=== PATIENT | female | born 1950 | race Caucasian/White ===

== ENCOUNTER → 2016-08-04 | Outpatient (CLI) | payer MEDICARE ==
[~2016-08-04] MED LIST: AMITRIPTYLINE H25 MG PO; BUPROPION HCL150 M1 PO; CEFUROXIME500 MG PO; COUMADIN 5MG TAB5 MG PO; LOPRESSOR 25 MG25 MG PO; NEURONTIN 300300 MG PO; PRINIVIL20 MG PO; PROAIR HFA8.5 GM INH; PROTONIX 40 MG40 M1 PO; RANITIDINE HCL300 MG PO; SOTALOL AF80 MG PO
== END ==
LOC: KOH-I 12:56
DX: I48.2 Chronic atrial fibrillation (principal); M79.605 Pain in left leg
CPT/HCPCS: 93971

== ENCOUNTER 2020-10-18 17:04 | Inpatient (IN) | payer MEDICARE ==
[~2020-10-18] VITALS: Ht 172.7 cm; Wt 97.6 kg
[~2020-10-18 17:04] MED LIST changes: -AMITRIPTYLINE H25 MG PO; -COUMADIN 5MG TAB5 MG PO; +KEFLEX CAP 500500 MG PO; -LOPRESSOR 25 MG25 MG PO; -NEURONTIN 300300 MG PO; -PROTONIX 40 MG40 M1 PO
[2020-10-18 17:57] LABS: HEMOGLOBIN 14.3 gm/dl (12.3-15.3); RED BLOOD COUNT 4.41 M/UL (4.00-5.10); WHITE BLOOD COUNT 8.2 K/UL (4.5-11.0)
[2020-10-18 18:12] LABS: BUN/CREATININE RATIO 22 (0-10)
[2020-10-19] MEDS ORDERED: WARFARIN SODIUM3 MG PO ×2 (00:23→12:08)
[2020-10-19] MEDS ORDERED: COREG 12.5MG12.5 MG PO (00:24)
[2020-10-19] MEDS ORDERED: AMITRIPTYLINE H25 MG PO (00:24)
[2020-10-19] MEDS ORDERED: PROTONIX 40 MG40 M1 PO (00:25)
[2020-10-19 04:01] LABS: HEMOGLOBIN 13.8 gm/dl (12.3-15.3); RED BLOOD COUNT 4.25 M/UL (4.00-5.10); WHITE BLOOD COUNT 7.1 K/UL (4.5-11.0)
[2020-10-19 04:22] LABS: BUN/CREATININE RATIO 21 (0-10)
[2020-10-19] MEDS ORDERED: HYDROCODON-ACE1 EAC6 PO (10:56)
[2020-10-19] MEDS ORDERED: PEPCID20 MG PO (10:56)
[2020-10-19] MEDS ORDERED: ZOCOR20 MG PO (10:56)
[2020-10-19] MEDS ORDERED: DEXAMETHASONE (11:30)
[2020-10-19] MEDS ORDERED: REMDESIVIR100 MG/20 IV (11:30)
[2020-10-19] MEDS ORDERED: LASIX40 MG PO (12:10)
[2020-10-19] MEDS ORDERED: NEURONTIN600 MG PO (17:46)
[2020-10-20 10:24] LABS: HEMOGLOBIN 13.2 gm/dl (12.3-15.3); RED BLOOD COUNT 4.07 M/UL (4.00-5.10)
[2020-10-20 10:32] LABS: WHITE BLOOD COUNT 13.2 K/UL (4.5-11.0)
[2020-10-21 07:33] LABS: BUN/CREATININE RATIO 28 (0-10); RED BLOOD COUNT 3.75 M/UL (4.00-5.10); WHITE BLOOD COUNT 21.1 K/UL (4.5-11.0)
--- NOTE | 2020-10-22 00:07 | NUR ---
[facility] CONTACTED FOR BED PLACEMENT WITH PATIENT AT 2340 10/21/20 PLACED PATIENT IN UNIT 3B AND REPORT WAS CALLED AT [phone] AT 2340 10/21/20 TO NURSE REGINA. PATIENT RESTING IN BED WITH NO COMPLAINTS AT THIS TIME. CALL LIGHT IN REACH BED IN LOW POSITION AND SIDE RAILS ELEVATED.
--- NOTE | 2020-10-22 00:17 | NUR ---
CONTACTED [facility] FOR PATIENT TRANSPORT TO [facility] AT 0011 10/22/20
--- NOTE | 2020-10-22 03:57 | NUR ---
patient leaves floor with [facility] crew per stretcher at 0350. patient in stable condition with no complaints at this time.
== END 2020-10-22 03:45 | disposition short-term general hospital (02) | DRG 177 ==
LOC: ER1 17:04 → CDU 19:06 → ER1 19:06 → CDU 10-19 14:16 → M/S 10-19 15:58 → CDU 10-19 15:58 → ZEROF 10-19 16:08 → CDU 10-19 16:09 → M/S 10-19 19:42
PROVIDERS: Physician Assistant Medical; ADMIT Internal Medicine
PROC: 3E0333Z Introduction of Anti-inflammatory into Peripheral Vein, Percutaneous Approach (ICD-10-PCS; principal; 2020-10-18)
PROC: XW033E5 Introduction of Remdesivir Anti-infective into Peripheral Vein, Percutaneous Approach, New Technology Group 5 (ICD-10-PCS; 2020-10-18)
PROC: 8E0ZXY6 Isolation (ICD-10-PCS; 2020-10-18)
DX: U07.1 COVID-19 (principal); J12.82 Pneumonia due to coronavirus disease 2019; J15.9 Unspecified bacterial pneumonia; J96.01 Acute respiratory failure with hypoxia; K22.3 Perforation of esophagus; E87.1 Hypo-osmolality and hyponatremia; I25.10 Atherosclerotic heart disease of native coronary artery without angina pectoris; E87.6 Hypokalemia; G62.9 Polyneuropathy, unspecified; R53.81 Other malaise; I10 Essential (primary) hypertension; K21.9 Gastro-esophageal reflux disease without esophagitis; K44.9 Diaphragmatic hernia without obstruction or gangrene; I48.91 Unspecified atrial fibrillation; Z79.01 Long term (current) use of anticoagulants
CPT/HCPCS: 36415; 36600; 71045; 80048; 80053; 82550; 82553; 82728; 82803; 83605; 83615; 83735; 83874; 83880; 84100; 84132; 84484; 85025; 85027; 85379; 85610; 85652; 86140; 87040; 93005; 94760; 96374; 96375; 97161; 97165; 99285; J0456; J0696; J1100; J1650; J7030; J7040; Q9967; U0002